=== PATIENT | female | born 2005 | race Asian ===

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

== ENCOUNTER → 2025-03-11 11:24 | Outpatient (REF) | payer BC, SELFPAY | LOC: MRI 3T 11:24 | PROVIDERS: ATTENDING PHYSICIAN Psychiatry & Neurology Neurology; FAMILY PHYSICIAN Pediatrics | DX: R55 Syncope and collapse (principal) | CPT/HCPCS: 70553; A9575 ==

== ENCOUNTER 2025-07-11 21:27 | Emergency (ER) | payer BC, SELFPAY ==
[2025-07-11] VITALS (7 sets, daily range): BP systolic 96–116; BP diastolic 62–84; PULSE 60–87
[2025-07-11 22:02] LABS: Hematocrit 39.0 % (37.0-47.0); Hemoglobin 12.5 g/dL (12.0-16.0); Mean Corp Hgb Conc. 32.1 g/dL (33.0-37.0); Mean Corpuscular Volume 92.9 fL (81.0-99.0); Nucleated Red Blood Cells % 0 %; Platelet Count 291 10^3/uL (130-400); Red Cell Dist. Width 11.6 % (11.5-14.5)
--- NOTE | 2025-07-11 22:10 | ED.GENMED ---
History of Present Illness
<Meme Jones MD, Resident - Last Filed: 07/11/25 22:24>
General
Chief Complaint: Fainting Sensation
Source: patient and family
Time Seen by Provider: 07/11/25 21:44
History of Present Illness
History of Present Illness:
Patient is a 20-year-old female with past medical history significant for a syncopal episode in September 2024, and she has been using midodrine as needed for abnormal tilt test. She did not require any midodrine since February 2025.
She is here today with complaint of fluttering in chest, racing heart and a feeling like her heart was, jumped out of her chest. She was watching television when she had the symptoms, she immediately went to her mother's room holding her chest and
saying that she felt something was not right, her mother started asking her questions but she could not make sense of it and that a couple of seconds later she just said call [phone] 1 I do not feel right.
She denies feeling any warmth or any aura prior to having the episode.
Currently she feels fine and review of systems is negative
Past History
<Meme Jones MD, Resident - Last Filed: 07/11/25 22:24>
Past History
ED Past Medical History: None
ED Past Surgical History: None
Social History
Tobacco: Non-smoker
Alcohol: None
Drug: None
Living: with family
Review of Systems
<Meme Jones MD, Resident - Last Filed: 07/11/25 22:24>
Review of Systems
All Other Systems: ROS reviewed and negative except as documented in HPI and ROS
Phy Exam
<Meme Jones MD, Resident - Last Filed: 07/11/25 22:24>
General Physical Exam
General Presentation: well appearing and no apparent distress
General age: appears stated age
General Skin: warm and dry
General Habitus: normal
General Hydration: appears well hydrated
Cardiovascular Exam
Cardiovascular Exam: regular rate/rhythm, no edema, no gallop, no JVD, no murmur and normal peripheral pulses
Pulmonary Exam
Pulmonary Exam: lungs clear and no respiratory distress
Gastrointestinal Exam
Gastrointestinal Exam: normal bowel sounds, non tender and soft
Neurological Exam
Neurological Exam: alert, oriented x3, no motor deficits and no sensory deficits
Musculoskeletal Exam
Musculoskeletal Exam: full ROM
Course
<Meme Jones MD, Resident - Last Filed: 07/11/25 22:24>
Orders/Labs/Results
Orders:
Orders
07/11/25 21:30
EKG [Electrocardiogram (*1)] Urgent
Reason for Study: Palpitations
EKG- Treatment ONCE
07/11/25 21:42
Electrocardiogram (*1) Urgent
Reason for Study: Chest Pain
Cardiac Monitoring- Treatment ONCE
EKG- Treatment ONCE
IV Insert/Care/Rem.- Treatment PRN
Pulse Ox/spot Check [RESP] Urgent
Quantity: 1
Special Instructions: ON ROOM AIR
07/11/25 21:43
Test Result ONCE
07/11/25 21:52
Complete Blood Count/With Diff Urgent
Comprehensive Metabolic Panel Urgent
HCG, Serum Qualitative Screen Urgent
Comment: Notify provider if positive test present
07/11/25 22:03
Orthostatic VS- Treatment ONCE
Abnormal Lab Results
07/11/25
21:52
MCHC 32.1 L g/dL
(33.0-37.0)
Glucose 105 H mg/dl
(70-99)
07/11/25 21:52
07/11/25 21:52
Vital Signs
Initial and Last Documented VS:
Initial Vital Signs
Temp Pulse Resp BP Pulse Ox
97.1 F 72 18 111/62 99
07/11/25 21:30 07/11/25 21:30 07/11/25 21:30 07/11/25 21:30 07/11/25 21:30
Last Documented Vital Signs
Temp Pulse Resp BP Pulse Ox
97.1 F 67 16 104/74 98
07/11/25 21:30 07/11/25 23:15 07/11/25 23:15 07/11/25 23:00 07/11/25 23:15
<Carter Galvan, DO - Last Filed: 07/11/25 23:30>
Orders/Labs/Results
Orders:
Orders
07/11/25 21:30
EKG [Electrocardiogram (*1)] Urgent
Reason for Study: Palpitations
EKG- Treatment ONCE
07/11/25 21:42
Electrocardiogram (*1) Urgent
Reason for Study: Chest Pain
Cardiac Monitoring- Treatment ONCE
EKG- Treatment ONCE
IV Insert/Care/Rem.- Treatment PRN
Pulse Ox/spot Check [RESP] Urgent
Quantity: 1
Special Instructions: ON ROOM AIR
07/11/25 21:43
Test Result ONCE
07/11/25 21:52
Complete Blood Count/With Diff Urgent
Comprehensive Metabolic Panel Urgent
HCG, Serum Qualitative Screen Urgent
Comment: Notify provider if positive test present
07/11/25 22:03
Orthostatic VS- Treatment ONCE
Abnormal Lab Results
07/11/25
21:52
MCHC 32.1 L g/dL
(33.0-37.0)
Glucose 105 H mg/dl
(70-99)
07/11/25 21:52
07/11/25 21:52
Vital Signs
Initial and Last Documented VS:
Initial Vital Signs
Temp Pulse Resp BP Pulse Ox
97.1 F 72 18 111/62 99
07/11/25 21:30 07/11/25 21:30 07/11/25 21:30 07/11/25 21:30 07/11/25 21:30
Last Documented Vital Signs
Temp Pulse Resp BP Pulse Ox
97.1 F 67 16 104/74 98
07/11/25 21:30 07/11/25 23:15 07/11/25 23:15 07/11/25 23:00 07/11/25 23:15
<Meme Jones MD, Resident - Last Filed: 07/11/25 22:24>
MDM/Problems Addressed
Differential Diagnosis Includes:
Near syncopal episode
MDM/Problems Addressed:
Blood work looks fine with normal blood counts
EKG without any acute ST-T changes, any rhythm changes or any PVCs
<Meme Jones MD, Resident - Last Filed: 07/11/25 22:24>
*Pulse Oximetry
SaO2: 98
Oxygen Mode of Delivery: Room air
<Carter Galvan, - Last Filed: 07/11/25 23:30>
*Pulse Oximetry
Patient hypoxic: no
*Critical Care Note
Total Time (30-74mins, 75-104mins- exclusive of procedures): Not Applicable
ED Attending Note
<Meme Jones MD, Resident - Last Filed: 07/11/25 22:24>
-
Portions of this chart may have been created with voice recognition software.� Occasional wrong word or��sound alike� substitutions may have occurred due to the inherent limitations of voice recognition software.
<Carter Galvan DO - Last Filed: 07/11/25 23:30>
ED Attending Note
Patient seen and examined by attending physician: Yes
I performed a history and physical exam of patient and discussed management with resident, I reviewed resident's note and agree with documented findings and plan of care.: Yes
ED Attending Note:
Seen with resident examined independently 20-year-old female with orthostasis positive tilt table on midodrine as needed she had a syncopal event/seizure previously seen by cardiology and neurology had a overnight EEG presents with palpitations,
folic she was going to pass out lasted just a minute or so family called 911 here she looks well normal sinus rhythm no arrhythmias on telemetry labs look good will check orthostatics keep her in a hall monitor, provide reassurance may benefit
from outpatient monitor reviewed with patient and mother
Discharge Plan
Departure
Patient Disposition: Home (Routine Discharge)
Date of Disposition: 07/11/25
Time of Disposition: 23:02
Patient with high blood pressure during this ER visit?: No
Discharge Problem:
Near syncope
Instructions: Syncope (Fainting) (DC), Near Fainting (DC)
Prescriptions:
No Action
acetaminophen [acetaminophen] 325 mg tablet
650 mg PO Q4HPRN PRN (Reason: mild pain) Qty: 1 0RF
hydrocodone-acetaminophen 5-325 mg tablet
1 tab PO Q4HPRN PRN (Reason: severe/breakthrough pain) Qty: 5 0RF
ibuprofen 200 mg tablet
400 mg PO Q6HPRN PRN (Reason: moderate pain) Qty: 1 0RF
Referrals:
Larisa Scales DO [Family Provider, Pediatrics]
Activity Restrictions/Additional Instructions:
FOLLOW UP WITH YOUR ILLUMINATOR
KEEP YOURSELF HYDRATED,MONITOR YOUR SYMPTOMS
PLEASE RETURN TO ER IN CASE OF PERSISTENT SYMPTOMS,CHEST PALPITATIONS,SOB,CHEST PAIN OR SYNCOPAL EPISODE
Interventions
Interventions:
*Risk Screen - Suicide Last Done: 07/11/25 21:30
*General Assessment Last Done: 07/11/25 21:30
*Neglect/Abuse Screening Last Done: 07/11/25 21:30
*ED- Fall Risk Assessment Last Done: 07/11/25 21:30
*ED COVID-19 Vaccine History Last Done: 07/11/25 21:30
*ED Influenza Vaccine History Last Done: 07/11/25 21:30
ED- Cardiac Assessment Last Done: 07/11/25 21:59
ED- Neurological Assessment Last Done: 07/11/25 21:59
Discharge Date and Time
Print Language: SLOVAK
[2025-07-11 22:19] LABS: HCG, Serum Qualitative Screen Negative
[2025-07-11 22:27] LABS: ALT (SGPT) 12 U/L (0-35); AST (SGOT) 21 U/L (14-36); Albumin 4.4 g/dl (3.5-5.0); Alkaline Phosphatase 67 U/L (38-126); Blood Urea Nitrogen 14 mg/dl (7-17); Calcium 9.4 mg/dl (8.4-10.2); Carbon Dioxide 29 mmol/L (22-30); Chloride 105 mmol/L (98-107); Glucose 105 mg/dl (70-99); Potassium 4.1 mmol/L (3.5-5.1); Sodium 138 mmol/L (135-145); Total Protein 7.7 g/dl (6.3-8.2); eGFR > 60.00
== END 2025-07-11 23:48 | disposition home or self-care (01) ==
LOC: EMR 21:27
PROVIDERS: Emergency Medicine; EMERGENCY PHYSICIAN Emergency Medicine; FAMILY PHYSICIAN Pediatrics
DX: R55 Syncope and collapse (principal); R00.8 Other abnormalities of heart beat
CPT/HCPCS: 99284; 80053; 84703; 85025; 93005